=== PATIENT | female | born 1950 | race Caucasian/White ===

== ENCOUNTER 2021-10-03 05:41 | Inpatient (IN) ==
[2021-10-03] MEDS ORDERED: ASPIRIN 325 MG TABLET PO STA (06:00)
[2021-10-03] MEDS ORDERED: NITROGLYCERIN 2% OINT 1 INCH/GM PACK TOP STA (06:12)
[2021-10-03] MEDS ORDERED: FUROSEMIDE 40 MG/4 ML VIAL IV STA ×2 (06:12→14:44)
[2021-10-03] MEDS ORDERED: NITROGLYCERIN SL 0.4 MG TABLET SL PRN (06:12)
[2021-10-03 06:13] LABS: Basophils % 0.3 % (0.0-0.8); Eosinophils # 0.4 10*3/uL (0.0-0.87); Eosinophils % 2.3 % (0.00-10.9); Hematocrit 38.2 VOL% (35.7-47.0); Hemoglobin 12.5 GM/DL (12.0-16.0); Immature Granulocytes % 0.6 %; Immature Granulocytes Absolute 0.09 #; Lymphocytes # 2.5 10*3/uL (1.4-4.0); Lymphocytes % 15.8 % (21.3-54.2); Mean Corpuscular HGB Conc 32.7 GM/DL (32-36); Mean Corpuscular Volume 98.5 FL (87-102); Mean Platelet Volume 9.6 FL (9.6-12.0); Monocytes % 4.5 % (1.7-12.7); Neutrophils % 76.5 % (38.7-73.9); Platelet Count 283 T/CUMM (130-400); Red Blood Count 3.88 MC/CUMM (3.8-5.5); Red Cell Distribution Width 14.6 % (9.3-17.3); White Blood Count 15.9 T/CUMM (4-12)
[2021-10-03 06:43] LABS: Calcium 8.1 MG/DL (8.5-10.1); Osmolality,Calculated 290.4 MOS/KG (273-304); Potassium 3.1 MMOL/L (3.5-5.1)
[2021-10-03 06:50] LABS: ABG Base Excess 1.8 MMOL/L (-2.5-2.5); ABG HCO3 25.8 MMOL/L (20-26); ABG Oxygen Saturation 89.2 % (95-100); ABG PCO2 55.3 MM HG (35-48); ABG PH 7.328 (7.35-7.45); ABG PO2 61.7 MM HG (80-95); ABG TCO2 25.8 MMOL/L (23-27)
[2021-10-03] MEDS ORDERED: GLUCAGON 1 MG VIAL IM PRN (09:07)
[2021-10-03] MEDS ORDERED: ACETAMINOPHEN 325 MG TABLET PO PRN (09:07)
[2021-10-03] MEDS ORDERED: ONDANSETRON 4 MG/2 ML VIAL IV PRN (09:07)
[2021-10-03] MEDS ORDERED: DEXTROSE 10% 250 ML BAG IV PRN (09:07)
[2021-10-03] MEDS ORDERED: hydrALAZINE 20 MG/1 ML VIAL IV PRN (09:07)
[2021-10-03] MEDS: FUROSEMIDE 40 MG/4 ML VIAL IV SCH (11:42)
[2021-10-03] MEDS: ENOXAPARIN 30 MG/0.3 ML SYRINGE SUBCUT SCH (11:42)
[2021-10-03] MEDS: INSULIN LISPRO 100 UNIT/ML SUBCUT SCH ×3 (11:42→23:04)
[2021-10-03] MEDS: ALPRAZolam 0.5 MG TABLET PO SCH (14:13)
[2021-10-03] MEDS ORDERED: ALBUTEROL/IPRATROPIUM 3 ML NEB RESP TX ONE (14:32)
[2021-10-03] MEDS ORDERED: NITROGLYCERIN 2% OINT 1 INCH/GM PACK TOP ONE ×2 (14:37→15:30)
[2021-10-03] MEDS ORDERED: methylPREDNISolone SOD SUC 40 MG/1 ML VIAL IV STA (14:45)
[2021-10-03 15:12] LABS: Calcium 7.8 MG/DL (8.5-10.1); Osmolality,Calculated 287.4 MOS/KG (273-304); Potassium 3.3 MMOL/L (3.5-5.1)
[2021-10-03 15:37] LABS: Arterial Base Excess iSTAT 6 MMOL/L (-2.5-2.5); Arterial Bicarbonate iSTAT 33.5 MMOL/L (20-26); Arterial O2 Saturation iSTAT 91 % (95-100); Arterial PCO2 iSTAT 62 MM HG (35-48); Arterial PO2 iSTAT 67 MM HG (80-95); Arterial Total CO2 iSTAT 35 MMO/L (23-27); Arterial pH iSTAT 7.339 (7.35-7.45)
[2021-10-03] MEDS: carvediloL 25 MG TABLET PO SCH (18:15)
[2021-10-03] MEDS: AMITRIPTYLINE 75 MG TABLET PO SCH (23:03)
[2021-10-04 06:06] LABS: Basophils % 0.3 % (0.0-0.8); Hematocrit 38.7 VOL% (35.7-47.0); Hemoglobin 12.8 GM/DL (12.0-16.0); Immature Granulocytes % 0.4 %; Immature Granulocytes Absolute 0.03 #; Lymphocytes # 1.1 10*3/uL (1.4-4.0); Lymphocytes % 16.2 % (21.3-54.2); Mean Corpuscular HGB Conc 33.1 GM/DL (32-36); Mean Corpuscular Volume 97.5 FL (87-102); Mean Platelet Volume 9.6 FL (9.6-12.0); Monocytes % 2.2 % (1.7-12.7); Neutrophils % 80.9 % (38.7-73.9); Platelet Count 226 T/CUMM (130-400); Red Blood Count 3.97 MC/CUMM (3.8-5.5); Red Cell Distribution Width 14.4 % (9.3-17.3); White Blood Count 6.8 T/CUMM (4-12)
[2021-10-04 06:31] LABS: Albumin 2.9 G/DL (3.4-5.0); Bilirubin,Total 0.5 MG/DL (0.20-1.00); Calcium 8.5 MG/DL (8.5-10.1); Osmolality,Calculated 291.3 MOS/KG (273-304); Potassium 2.7 MMOL/L (3.5-5.1); Risk Ratio 3.25; Thyroid Stimulating Hormone 0.648 uIU/ml (0.358-3.74); Total Protein 7.6 G/DL (6.4-8.2); VLDL Cholesterol 28.6 MG/DL
[2021-10-04] MEDS: FUROSEMIDE 40 MG/4 ML VIAL IV SCH (09:33)
[2021-10-04] MEDS: CLOPIDOGREL 75 MG TABLET PO SCH (09:34)
[2021-10-04] MEDS: amLODIPine 10 MG TABLET PO SCH (09:34)
[2021-10-04] MEDS: carvediloL 25 MG TABLET PO SCH ×2 (09:34→17:37)
[2021-10-04] MEDS: ASPIRIN EC 81 MG TABLET PO SCH (09:34)
[2021-10-04] MEDS: ATORVASTATIN 40 MG TABLET PO SCH (09:34)
[2021-10-04] MEDS: ENOXAPARIN 30 MG/0.3 ML SYRINGE SUBCUT SCH (09:35)
[2021-10-04] MEDS: ALPRAZolam 0.5 MG TABLET PO SCH ×4 (09:38→20:10)
[2021-10-04] MEDS: INSULIN LISPRO 100 UNIT/ML SUBCUT SCH ×4 (09:39→20:10)
[2021-10-04] MEDS ORDERED: POTASSIUM CHLORIDE 20 MEQ TABLET PO ONE (10:31)
[2021-10-04] MEDS: AMITRIPTYLINE 75 MG TABLET PO SCH (20:10)
[2021-10-05 04:58] LABS: Basophils % 0.1 % (0.0-0.8); Eosinophils # 0.1 10*3/uL (0.0-0.87); Eosinophils % 0.8 % (0.00-10.9); Hematocrit 32.8 VOL% (35.7-47.0); Hemoglobin 10.8 GM/DL (12.0-16.0); Immature Granulocytes % 0.5 %; Immature Granulocytes Absolute 0.04 #; Lymphocytes # 2.2 10*3/uL (1.4-4.0); Lymphocytes % 30.2 % (21.3-54.2); Mean Corpuscular HGB Conc 32.9 GM/DL (32-36); Mean Corpuscular Volume 98.5 FL (87-102); Mean Platelet Volume 10.1 FL (9.6-12.0); Neutrophils % 63.4 % (38.7-73.9); Platelet Count 207 T/CUMM (130-400); Red Blood Count 3.33 MC/CUMM (3.8-5.5); Red Cell Distribution Width 14.4 % (9.3-17.3); White Blood Count 7.4 T/CUMM (4-12)
[2021-10-05 05:14] LABS: Calcium 7.9 MG/DL (8.5-10.1); Osmolality,Calculated 293.3 MOS/KG (273-304)
[2021-10-05 05:18] LABS: Potassium 2.4 MMOL/L (3.5-5.1)
[2021-10-05] MEDS ORDERED: POTASSIUM CHLORIDE 20 MEQ TABLET PO SCH (09:00)
[2021-10-05] MEDS: INSULIN LISPRO 100 UNIT/ML SUBCUT SCH ×2 (09:07→12:22)
[2021-10-05] MEDS: carvediloL 25 MG TABLET PO SCH (09:23)
[2021-10-05] MEDS: ASPIRIN EC 81 MG TABLET PO SCH (09:23)
[2021-10-05] MEDS: amLODIPine 10 MG TABLET PO SCH (09:24)
[2021-10-05] MEDS: ATORVASTATIN 40 MG TABLET PO SCH (09:24)
[2021-10-05] MEDS: ALPRAZolam 0.5 MG TABLET PO SCH ×2 (09:24→15:07)
[2021-10-05] MEDS: ENOXAPARIN 30 MG/0.3 ML SYRINGE SUBCUT SCH (09:25)
[2021-10-05] MEDS: FUROSEMIDE 40 MG/4 ML VIAL IV SCH (09:25)
[2021-10-05] MEDS: CLOPIDOGREL 75 MG TABLET PO SCH (09:26)
[2021-10-05 16:24] VITALS: BP 122/47
== END 2021-10-05 16:42 | disposition hospice, home (50) | DRG 291 ==
LOC: EDBD → EDUNIT# → N.ED 05:41 → SUATTDRO 09:07 → N.EDINP 09:07 → N.TELEN 10:45
PROVIDERS: ADMIT Internal Medicine; ATTEND Internal Medicine